=== PATIENT | female | born 1995 | race Caucasian/White ===

== ENCOUNTER 2018-03-25 20:20 | Emergency (ER) | payer OTHER ==
[~2018-03-25] VITALS: Ht 167.6 cm; Wt 59.2 kg
[2018-03-25 20:47] LABS: BASOPHILS # (AUTO) 0.02 x10^3/uL (0-0.1); BASOPHILS % (AUTO) 0 % (0-1); EOSINOPHILS % (AUTO) 0 % (1-7); LYMPHOCYTES # (AUTO) 1.14 x10^3/uL (1-3.4); LYMPHOCYTES % (AUTO) 8 % (22-44); MD NO; MEAN CORPUSCULAR HEMOGLOBIN 34.9 pg (27.0-34.8); MEAN CORPUSCULAR VOLUME 102.6 fL (80-100); MEAN PLATELET VOLUME 10.3 fL (7.4-10.4); MONOCYTES # (AUTO) 0.87 x10^3/uL (0.2-0.8); MONOCYTES % (AUTO) 6 % (2-9); NEUTROPHILS # (AUTO) 13.16 x10^3/uL (1.8-6.8); NEUTROPHILS % (AUTO) 87 % (42-75); PLATELET COUNT 230 x10^3/uL (130-400); RED BLOOD COUNT 4.96 x10^6/uL (3.82-5.3); RED CELL DISTRIBUTION WIDTH 15.1 % (9.6-15.2)
[2018-03-25 20:58] LABS: MICROSCOPIC INDICATED
[2018-03-25 20:59] LABS: ALBUMIN 3.9 g/dL (3.4-5.0); ANION GAP 12 mmol/L (5-15); CALCIUM 9.3 mg/dL (8.5-10.1); CHLORIDE 103 mmol/L (98-107)
[2018-03-25] MEDS ORDERED: ONDANSETRON ODT 4 MG ONE (21:00)
[2018-03-25 21:05] LABS: ALANINE AMINOTRANSFERASE 31 U/L (12-78); ALKALINE PHOSPHATASE 110 U/L (45-117); BILIRUBIN,TOTAL 0.8 mg/dL (0.2-1.0); CREATININE 1.25 mg/dL (0.55-1.02); TOTAL PROTEIN 8.4 g/dL (6.4-8.2)
[2018-03-25 21:06] LABS: CULTURE INDICATED? NO
[2018-03-25] MEDS ORDERED: ZIPRASIDONE 20 MG INJ IM ONE ×2 (21:08→21:30)
[2018-03-25 23:17] VITALS: BP 111/70
== END 2018-03-25 23:24 | disposition home or self-care (01) ==
LOC: ED 20:57
DX: F41.9 Anxiety disorder, unspecified (principal); F17.200 Nicotine dependence, unspecified, uncomplicated; Z87.39 Personal history of other diseases of the musculoskeletal system and connective tissue
CPT/HCPCS: 36415; 71045; 80053; 81001; 83690; 84703; 85025; 93005; 96372; 99285; J3486

== ENCOUNTER 2019-03-12 13:16 | Observation (INO) | payer OTHER ==
[~2019-03-12] VITALS: Ht 167.6 cm; Wt 67.3 kg
--- NOTE | 2019-03-12 13:41 | NUR ---
THIS IS A 23 YO FEMALE COMING IN FOR SOB AND TACHYPNEA. PT HAS HX OF ANXIETY BUT STATES PREVIOUS ANXIETY ATTACKS HAVE NOT BEEN THIS SEVERE. PT STATES THAT SHE REGUARLY SMOKES MARIJUANA, BUT HAS NOT SMOKED IN 3-4 DAYS AND FEELS NAUSEOUS AND THROWS UP IF SHE DOES NOT SMOKE MARIJANA, PATIENT SAYS SHE VOMITED ALL DAY YESTERDAY, CURRENTLY DOES NOT FEEL NAUSEOUS. PATIENT PLACED ON CONTINUOUS SPO2 AT 97%, CYCLE BP Q1HR. PROVIDED WITH WARM BLANKET, AND CALL LIGHT, DENIES FURTHER NEEDS AT THIS TIME.
[2019-03-12] MEDS ORDERED: LORazepam 2 MG/ML, 1ML IM ONE (14:00)
[2019-03-12 14:01] LABS: ALANINE AMINOTRANSFERASE 36 U/L (12-78); ALBUMIN 3.8 g/dL (3.4-5.0); ANION GAP 10 mmol/L (5-15); CALCIUM 9.2 mg/dL (8.5-10.1); CHLORIDE 104 mmol/L (98-107); CREATININE 1.25 mg/dL (0.55-1.02)
[2019-03-12 14:06] LABS: ALKALINE PHOSPHATASE 95 U/L (45-117); BILIRUBIN,TOTAL 1.3 mg/dL (0.2-1.0); TOTAL PROTEIN 7.9 g/dL (6.4-8.2)
[2019-03-12] MEDS ORDERED: LORazepam 2 MG/ML, 1ML ONE (14:07)
[2019-03-12] MEDS ORDERED: D5%-0.45NACL+KCL 40MEQ 1,000 ML IV SCH (14:30)
--- NOTE | 2019-03-12 14:31 | NUR ---
REPORT GIVEN TO TEMO MARTINI. US IN ROOM, PATIENT RESTING.
[2019-03-12] MEDS ORDERED: GUAIFENESIN/DM 200-20MG, 10ML UDC PO PRN (15:00)
[2019-03-12] MEDS ORDERED: DOCUSATE 100 MG CAPSULE PO PRN (15:00)
[2019-03-12] MEDS ORDERED: hydrALAzine 20 MG/ML, 1ML IVPush PRN (15:00)
[2019-03-12] MEDS ORDERED: ACETAMINOPHEN 325 MG TABLET PO PRN (15:00)
[2019-03-12] MEDS ORDERED: ONDANSETRON ODT 4 MG PO PRN (15:00)
[2019-03-12 15:29] LABS: TROPONIN I < 0.015 ng/mL (0.000-0.045)
--- NOTE | 2019-03-12 15:29 | NUR ---
PATIENT MEDICATED PER EMAR, RESTING COMFORTABLY IN [place], NAD, VSS, ON CONTINUOUS SPO2 AT 92%, CYCLE BP Q1HR. PATIENT DENIES FURTHER NEEDS AT THIS TIME. WAITING FOR ROOM ASSIGNMENT.
--- NOTE | 2019-03-12 16:30 | NUR ---
REPORT GIVEN TO TEMO SHETTY. PLAN OF CARE DISCUSSED.
[2019-03-12] MEDS ORDERED: ALPR0.5T7 PO (16:32)
[2019-03-12] MEDS ORDERED: ONDA4TAB7 PO (16:33)
--- NOTE | 2019-03-12 16:55 | NUR ---
PATIENT TRANSPORTED WITH MEDICATIONS RUNNING. UNABLE TO DOCUMENT IN [facility].
[2019-03-12] MEDS ORDERED: SINCALIDE (KINEVAC) 5 MCG ONE (18:33)
[2019-03-12 19:07] VITALS: BP 142/92
[2019-03-12] MEDS: SODIUM CHLORIDE 0.9% 1,000 ML IV SCH ×2 (19:30→23:31)
[2019-03-12] MEDS: FAMOTIDINE 20 MG TABLET PO SCH (20:14)
[2019-03-12 21:24] LABS: TROPONIN I < 0.015 ng/mL (0.000-0.045)
[2019-03-13 00:15] LABS: ANION GAP 7 mmol/L (5-15); CALCIUM 8.2 mg/dL (8.5-10.1); CHLORIDE 109 mmol/L (98-107); CREATININE 0.79 mg/dL (0.55-1.02)
[2019-03-13 01:54] VITALS: BP 122/81
[2019-03-13 03:26] LABS: CULTURE INDICATED? YES; MICROSCOPIC INDICATED
[2019-03-13 03:36] LABS: AMPHETAMINE SCREEN, URINE Negative (Negative); BARBITURATE SCREEN, URINE Negative (Negative); BENZODIAZEPINE SCREEN, URINE Positive (Negative); CANNABINOID SCREEN, URINE Positive (Negative); COCAINE SCREEN, URINE Negative (Negative); METHADONE SCREEN, URINE Negative (Negative); OPIATE SCREEN, URINE Negative (Negative)
[2019-03-13 05:30] LABS: BASOPHILS # (AUTO) 0.02 x10^3/uL (0-0.1); BASOPHILS % (AUTO) 0 % (0-1); EOSINOPHILS # (AUTO) 0.16 x10^3/uL (0-0.4); EOSINOPHILS % (AUTO) 1 % (1-7); LYMPHOCYTES % (AUTO) 12 % (22-44); MD NO; MEAN CORPUSCULAR HEMOGLOBIN 35.2 pg (27.0-34.8); MEAN CORPUSCULAR HGB CONC 33.4 g/dL (32.4-35.8); MEAN CORPUSCULAR VOLUME 105.5 fL (80-100); MEAN PLATELET VOLUME 11.3 fL (7.4-10.4); MONOCYTES # (AUTO) 1.13 x10^3/uL (0.2-0.8); MONOCYTES % (AUTO) 10 % (2-9); NEUTROPHILS # (AUTO) 8.63 x10^3/uL (1.8-6.8); NEUTROPHILS % (AUTO) 76 % (42-75); PLATELET COUNT 155 x10^3/uL (130-400); RED BLOOD COUNT 4.29 x10^6/uL (3.82-5.3); RED CELL DISTRIBUTION WIDTH 15.1 % (9.6-15.2)
[2019-03-13 05:38] LABS: ANION GAP 8 mmol/L (5-15); CHLORIDE 109 mmol/L (98-107); CREATININE 0.69 mg/dL (0.55-1.02)
[2019-03-13] MEDS ORDERED: CEFTRIAXONE PMX 1GM/50ML 50 ML IV SCH (08:30)
[2019-03-13 08:47] VITALS: BP 130/86
[2019-03-13 08:52] LABS: BILIRUBIN, DIRECT 0.3 mg/dL (0.1-0.2)
[2019-03-13 08:54] LABS: BILIRUBIN,INDIRECT 0.6 mg/dL (0.0-2.0); BILIRUBIN,TOTAL 0.9 mg/dL (0.2-1.0)
[2019-03-13] MEDS: FAMOTIDINE 20 MG TABLET PO SCH (09:00)
[2019-03-13] MEDS ORDERED: EPINEPHRINE 1 MG/ML, 1ML ONE (13:28)
[2019-03-13] MEDS ORDERED: BUPIVACAINE/PF 0.25% ONE (13:28)
[2019-03-13] MEDS ORDERED: MIDAZOLAM 1 MG/ML, 2ML ONE (13:52)
[2019-03-13] MEDS ORDERED: FENTANYL PF 250 MCG/5ML ONE (13:52)
[2019-03-13] MEDS ORDERED: PROPOFOL 10 MG/ML, 20ML ONE (13:55)
[2019-03-13] MEDS ORDERED: CEFAZOLIN 1,000 MG ONE (13:55)
[2019-03-13] MEDS ORDERED: DEXAMETHASONE 4 MG/ML, 1ML ONE (14:03)
[2019-03-13] MEDS ORDERED: SUGAMMADEX 200 MG/2 ML IVPush ONE (14:15)
[2019-03-13] MEDS ORDERED: ROCURONIUM 10MG/ML,5ML ONE (14:18)
[2019-03-13] MEDS ORDERED: SUCCINYLCHOLINE 20 MG/ML, 10ML ONE (14:18)
[2019-03-13] MEDS ORDERED: FENTANYL PF 100 MCG/2ML ONE (14:40)
[2019-03-13] MEDS ORDERED: DIAZEPAM 5 MG/ML, 2ML ONE (14:40)
[2019-03-13] MEDS: FENTANYL PF 100 MCG/2ML IV PRN ×2 (14:40→14:54)
[2019-03-13] MEDS ORDERED: EPHEDRINE 50 MG/ML, 1ML IVPush PRN (15:00)
[2019-03-13] MEDS ORDERED: PROMETHAZINE 25 MG/ML, 1ML IV PRN (15:00)
[2019-03-13] MEDS ORDERED: ACETAMINOPHEN 325 MG TABLET PO PRN (15:00)
[2019-03-13] MEDS ORDERED: MIDAZOLAM 1 MG/ML, 2ML IV PRN (15:00)
[2019-03-13] MEDS ORDERED: HALOPERIDOL 5 MG/ML IV PRN (15:00)
[2019-03-13] MEDS ORDERED: OXYcodone 5 MG/5 ML ORAL.SOL UDC PO PRN (15:00)
[2019-03-13] MEDS ORDERED: HYDROmorphone 2 MG/ML, 1ML IVPush PRN (15:00)
[2019-03-13] MEDS ORDERED: PROMETHAZINE 12.5 MG SUPP PR PRN (15:00)
[2019-03-13] MEDS ORDERED: MEPERIDINE/PF 25MG/ML,1ML IVPush PRN (15:00)
[2019-03-13] MEDS ORDERED: ALBUTEROL SULFATE 2.5 MG/3 ML NPPB PRN (15:00)
[2019-03-13] MEDS ORDERED: ONDANSETRON ODT 8 MG PO PRN (15:00)
[2019-03-13] MEDS ORDERED: ONDANSETRON 2MG/ML, 2ML IV PRN (15:00)
[2019-03-13] MEDS ORDERED: LABETALOL 5MG/ML, 20ML IV PRN (15:00)
[2019-03-13] MEDS ORDERED: DIAZEPAM 5 MG/ML, 2ML IVPush PRN (15:00)
[2019-03-13] MEDS ORDERED: hydrALAzine 20 MG/ML, 1ML IV PRN (15:00)
[2019-03-13] MEDS ORDERED: OXYcodone 5 MG/5 ML ORAL.SOL UDC ONE (15:13)
[2019-03-13 15:53] VITALS: BP 132/85
[2019-03-13] MEDS ORDERED: HYDROcodone/APAP 5/325 TABLET PO PRN (16:00)
[2019-03-13 19:10] VITALS: BP 139/88
== END 2019-03-13 20:30 | disposition left against medical advice (07) ==
LOC: ED 13:59 → EDIP 15:06 → INTOOBSV 15:06 → 4WST 16:43
PROVIDERS: ADMIT Hospitalist; ATTEND Hospitalist
DX: K82.8 Other specified diseases of gallbladder (principal); R11.2 Nausea with vomiting, unspecified; K21.9 Gastro-esophageal reflux disease without esophagitis; F41.0 Panic disorder [episodic paroxysmal anxiety]; F41.9 Anxiety disorder, unspecified; E87.6 Hypokalemia; F31.9 Bipolar disorder, unspecified; N17.9 Acute kidney failure, unspecified; M41.9 Scoliosis, unspecified; F12.90 Cannabis use, unspecified, uncomplicated; E86.0 Dehydration
CPT/HCPCS: 36415; 47562; 71046; 76700; 78227; 80048; 80053; 80074; 80076; 80307; 81001; 83690; 83735; 84100; 84443; 84484; 84703; 85025; 87086; 88304; 93005; 96361; 96365; 96366; 96372; 99284; A9537; C9898; G0378; J0171; J0330; J0690; J1100; J2060; J2250; J2704; J2805; J3010; J3360; J3480; J3490; J7030; Q0162

== ENCOUNTER 2019-05-19 20:49 | Emergency (ER) | payer SELFPAY ==
[~2019-05-19] VITALS: Ht 170.2 cm; Wt 59.8 kg
[~2019-05-19 20:49] MED LIST: ALPR0.5T7 PO; ONDA4TAB7 PO
--- NOTE | 2019-05-19 21:14 | NUR ---
PT TO ROOM FROM LOBBY
--- NOTE | 2019-05-19 21:17 | NUR ---
PT REPORTS N/V X 4DAYS, DENIES DIARRHEA, HAS ABDOMINAL PAIN IN ALL QUADRANTS. REPORTS HX OF SAME. HAS ZOFRAN, XANAX AND PHENERGAN AT HOME HAS BEEN TAKING THEM FOR 1 WEEK, REPORTS THEY ARENT WORKING. MOTHER REPORTSPT HAS BEEN IN ER OVER 20 TIMES IN LAST COUPLE MONTHS. PT RESTING WITH EYES CLOSED REPORTS 10/10 PAIN.
[2019-05-19] MEDS ORDERED: CAPSAICIN CRM 0.075%, 60GM TP STA (21:39)
[2019-05-19] MEDS ORDERED: PROMETHAZINE 25 MG/ML, 1ML IM ONE (22:00)
[2019-05-19] MEDS ORDERED: HALOPERIDOL 5 MG/ML IM PRN (22:00)
[2019-05-19] MEDS ORDERED: SODIUM CHLORIDE 0.9% 1,000ML IVBOLUS ONE (22:00)
[2019-05-19] MEDS ORDERED: HALOPERIDOL 5 MG/ML ONE (22:05)
[2019-05-19] MEDS ORDERED: PROMETHAZINE 25 MG/ML, 1ML ONE (22:05)
[2019-05-19 22:10] LABS: BASOPHILS # (AUTO) 0.03 x10^3/uL (0-0.1); BASOPHILS % (AUTO) 0 % (0-1); EOSINOPHILS # (AUTO) 0.03 x10^3/uL (0-0.4); EOSINOPHILS % (AUTO) 0 % (1-7); LYMPHOCYTES # (AUTO) 1.21 x10^3/uL (1-3.4); LYMPHOCYTES % (AUTO) 9 % (22-44); MD NO; MEAN CORPUSCULAR HEMOGLOBIN 34.9 pg (27.0-34.8); MEAN CORPUSCULAR HGB CONC 33.7 g/dL (32.4-35.8); MEAN CORPUSCULAR VOLUME 103.6 fL (80-100); MEAN PLATELET VOLUME 11.1 fL (7.4-10.4); MONOCYTES # (AUTO) 1.39 x10^3/uL (0.2-0.8); MONOCYTES % (AUTO) 10 % (2-9); NEUTROPHILS # (AUTO) 10.84 x10^3/uL (1.8-6.8); NEUTROPHILS % (AUTO) 80 % (42-75); PLATELET COUNT 193 x10^3/uL (130-400); RED BLOOD COUNT 4.64 x10^6/uL (3.82-5.3); RED CELL DISTRIBUTION WIDTH 15.4 % (9.6-15.2)
[2019-05-19 22:23] LABS: ALBUMIN 3.6 g/dL (3.4-5.0); ANION GAP 6 mmol/L (5-15); CALCIUM 8.6 mg/dL (8.5-10.1); CHLORIDE 103 mmol/L (98-107)
[2019-05-19 22:27] LABS: ALANINE AMINOTRANSFERASE 66 U/L (12-78); ALKALINE PHOSPHATASE 96 U/L (45-117); BILIRUBIN,TOTAL 1.4 mg/dL (0.2-1.0); CREATININE 0.99 mg/dL (0.55-1.02); TOTAL PROTEIN 7.3 g/dL (6.4-8.2)
[2019-05-19] MEDS ORDERED: SODIUM CHLORIDE FLUSH 10ML SYR IVF ONE (22:30)
--- NOTE | 2019-05-19 22:37 | NUR ---
ZOSTRIX ORDERED FROM PHARMACY
[2019-05-19 22:54] LABS: MICROSCOPIC NOT IND
[2019-05-19 23:02] LABS: CULTURE INDICATED? NO; HCG UR SG > 1.045 (1.003-1.030)
[2019-05-19 23:18] VITALS: BP 123/82
[2019-05-19] MEDS ORDERED: POTASSIUM CHLORIDE 20 MEQ TAB.ER.PRT PO ONE ×2 (23:30)
--- NOTE | 2019-05-19 23:30 | NUR ---
PT RESTING ON GURNEY WITH EYES CLOSED, CALL LIGHT WITHIN REACH, MONITORING IN PLACE. ALL SAFETY MEASURES IN PLACE.
[2019-05-19] MEDS ORDERED: POTASSIUM CHLORIDE 20 MEQ TAB.ER.PRT ONE ×2 (23:34→23:38)
== END 2019-05-20 00:01 | disposition home or self-care (01) ==
LOC: ED 21:13
DX: F12.188 Cannabis abuse with other cannabis-induced disorder (principal); R11.2 Nausea with vomiting, unspecified; E87.6 Hypokalemia; F17.210 Nicotine dependence, cigarettes, uncomplicated; K21.9 Gastro-esophageal reflux disease without esophagitis; Z72.9 Problem related to lifestyle, unspecified; Z90.49 Acquired absence of other specified parts of digestive tract
CPT/HCPCS: 36415; 80053; 80307; 81003; 81025; 83690; 85025; 96360; 96372; 99284; J1630; J2550; J7030

== ENCOUNTER 2019-05-22 08:53 | Inpatient (IN) | payer OTHER ==
[~2019-05-22] VITALS: Ht 167.6 cm; Wt 59.2 kg
--- NOTE | 2019-05-22 09:08 | NUR ---
PT MOVED TO ROOM
[2019-05-22] MEDS ORDERED: SODIUM CHLORIDE 0.9% 1,000 ML IV ONE (09:13)
[2019-05-22] MEDS ORDERED: PROMETHAZINE 25 MG/ML, 1ML IM ONE (09:30)
[2019-05-22] MEDS ORDERED: SODIUM CHLORIDE FLUSH 10ML SYR IVF ONE (09:30)
[2019-05-22] MEDS ORDERED: ONDANSETRON 2MG/ML, 2ML IVPush ONE (09:30)
[2019-05-22] MEDS ORDERED: FAMOTIDINE 20 MG/2 ML IV ONE (09:30)
[2019-05-22 09:33] LABS: BASOPHILS # (AUTO) 0.01 x10^3/uL (0-0.1); BASOPHILS % (AUTO) 0 % (0-1); EOSINOPHILS # (AUTO) 0.05 x10^3/uL (0-0.4); EOSINOPHILS % (AUTO) 0 % (1-7); LYMPHOCYTES # (AUTO) 1.35 x10^3/uL (1-3.4); LYMPHOCYTES % (AUTO) 11 % (22-44); MD NO; MEAN CORPUSCULAR HEMOGLOBIN 35.2 pg (27.0-34.8); MEAN CORPUSCULAR HGB CONC 33.8 g/dL (32.4-35.8); MEAN CORPUSCULAR VOLUME 103.9 fL (80-100); MEAN PLATELET VOLUME 10.3 fL (7.4-10.4); MONOCYTES # (AUTO) 1.14 x10^3/uL (0.2-0.8); MONOCYTES % (AUTO) 9 % (2-9); NEUTROPHILS # (AUTO) 9.84 x10^3/uL (1.8-6.8); NEUTROPHILS % (AUTO) 79 % (42-75); PLATELET COUNT 187 x10^3/uL (130-400); RED BLOOD COUNT 5.13 x10^6/uL (3.82-5.3); RED CELL DISTRIBUTION WIDTH 14.7 % (9.6-15.2)
[2019-05-22 09:59] LABS: ALANINE AMINOTRANSFERASE 48 U/L (12-78); ALBUMIN 4.1 g/dL (3.4-5.0); CALCIUM 9.4 mg/dL (8.5-10.1); CREATININE 0.99 mg/dL (0.55-1.02)
[2019-05-22] MEDS ORDERED: FAMOTIDINE 20 MG/2 ML ONE (10:04)
[2019-05-22] MEDS ORDERED: ONDANSETRON 2MG/ML, 2ML ONE ×2 (10:04→13:00)
[2019-05-22] MEDS ORDERED: PROMETHAZINE 25 MG/ML, 1ML ONE (10:04)
--- NOTE | 2019-05-22 10:09 | NUR ---
Report from TEMO Vasquez. Patient back from X-ray. IV started. IVF started per mar. Patient medicated per mar. 5 rights verified prior. 3p's addressed.
[2019-05-22 10:13] LABS: ALKALINE PHOSPHATASE 92 U/L (45-117); ANION GAP 11 mmol/L (5-15); BILIRUBIN,TOTAL 1.1 mg/dL (0.2-1.0); CHLORIDE 102 mmol/L (98-107); TOTAL PROTEIN 7.8 g/dL (6.4-8.2)
--- NOTE | 2019-05-22 10:53 | NUR ---
PATIENT UP TO RESTROOM. URINE SAMPLE OBTAINED AND SENT TO LAB. HOSPITALIST AT BEDSIDE TO ADMIT.
[2019-05-22] MEDS ORDERED: ONDANSETRON 2MG/ML, 2ML IVPush PRN (11:00)
[2019-05-22] MEDS ORDERED: POTASSIUM CHLORIDE 40 MEQ in SODIUM CHLORIDE 0.9% 500 ML IV ONE (11:00)
[2019-05-22] MEDS ORDERED: ACETAMINOPHEN 325 MG TABLET PO PRN (11:00)
[2019-05-22] MEDS ORDERED: NICOTINE 14MG/24 HR PATCH.TD24 TD SCH (11:00)
[2019-05-22] MEDS ORDERED: ONDANSETRON ODT 4 MG PO PRN (11:00)
[2019-05-22 11:03] LABS: HCG UR SG 1.026 (1.003-1.030)
[2019-05-22 11:04] LABS: CULTURE INDICATED? YES; MICROSCOPIC INDICATED
--- NOTE | 2019-05-22 13:16 | NUR ---
Patient with increased Nausea. Pt medicated per jul. 5 rights verified prior. 3 p's addressed.
--- NOTE | 2019-05-22 14:26 | NUR ---
Report to TEMO Crowell.
[2019-05-22] MEDS ORDERED: NICOTINE 14MG/24 HR PATCH.TD24 ONE (14:56)
[2019-05-22 15:14] VITALS: BP 113/71
[2019-05-22] MEDS: NS + 40MEQ KCL 1,000 ML IV SCH (17:25)
[2019-05-22 21:05] VITALS: BP 119/76
[2019-05-23 01:12] VITALS: BP 118/75
[2019-05-23] MEDS: NS + 40MEQ KCL 1,000 ML IV SCH (05:29)
[2019-05-23 05:38] LABS: BASOPHILS # (AUTO) 0.09 x10^3/uL (0-0.1); BASOPHILS % (AUTO) 1 % (0-1); EOSINOPHILS # (AUTO) 0.26 x10^3/uL (0-0.4); EOSINOPHILS % (AUTO) 3 % (1-7); LYMPHOCYTES # (AUTO) 3.36 x10^3/uL (1-3.4); LYMPHOCYTES % (AUTO) 35 % (22-44); MD NO; MEAN CORPUSCULAR HEMOGLOBIN 35.3 pg (27.0-34.8); MEAN CORPUSCULAR HGB CONC 33.6 g/dL (32.4-35.8); MEAN CORPUSCULAR VOLUME 105.1 fL (80-100); MEAN PLATELET VOLUME 11.1 fL (7.4-10.4); MONOCYTES # (AUTO) 1.11 x10^3/uL (0.2-0.8); MONOCYTES % (AUTO) 12 % (2-9); NEUTROPHILS # (AUTO) 4.72 x10^3/uL (1.8-6.8); NEUTROPHILS % (AUTO) 50 % (42-75); PLATELET COUNT 146 x10^3/uL (130-400); RED BLOOD COUNT 4.23 x10^6/uL (3.82-5.3); RED CELL DISTRIBUTION WIDTH 14.9 % (9.6-15.2)
[2019-05-23 05:42] LABS: ANION GAP 6 mmol/L (5-15); CALCIUM 8.2 mg/dL (8.5-10.1); CHLORIDE 112 mmol/L (98-107); CREATININE 0.71 mg/dL (0.55-1.02)
[2019-05-23 08:15] VITALS: BP 129/83
[2019-05-23] MEDS ORDERED: CALCIUM GLUCONATE 4.6 MEQ in SODIUM CHLORIDE 0.9% 50 ML IV ONE (09:00)
[2019-05-23] MEDS ORDERED: NICO-486 TD (10:26)
== END 2019-05-23 11:00 | disposition home or self-care (01) | DRG 392 ==
LOC: ED 10:24 → EDIP 10:34 → 4WST 14:58
PROVIDERS: ADMIT Emergency Medicine; ATTEND Family Medicine
DX: R11.2 Nausea with vomiting, unspecified (principal); D75.1 Secondary polycythemia; E83.51 Hypocalcemia; E87.6 Hypokalemia; F10.10 Alcohol abuse, uncomplicated; F12.10 Cannabis abuse, uncomplicated; K21.9 Gastro-esophageal reflux disease without esophagitis; F41.1 Generalized anxiety disorder; Z72.0 Tobacco use; Z90.49 Acquired absence of other specified parts of digestive tract
CPT/HCPCS: 36415; 74022; J3490; 80048; 80053; 81001; 81025; 83605; 83690; 83735; 84702; 85025; 87086; 93005; G0378; J0610; J2405; J2550; J3480; J7030; J7040

== ENCOUNTER 2019-07-08 10:46 | Emergency (ER) | payer OTHER ==
[~2019-07-08] VITALS: Ht 167.6 cm; Wt 60.0 kg
[~2019-07-08 10:46] MED LIST changes: +NICO-486 TD
--- NOTE | 2019-07-08 11:03 | NUR ---
TO ROOM FROM LOBBY.
--- NOTE | 2019-07-08 11:11 | NUR ---
PT. TO ED 24 WITH FAMILY. UPON ENTERING ROOM PT. DRY-HEAVING AND MOANING. STATES THIS HAS BEEN GOING ON FOR 36 HOURS WITH A HX OF SAME IN THE PAST. REPORTS GENERALIZED ABD CAMPING WITH VOMITING. HX OF HOLLIE. LAB AT COMPLETED BLOOD DRAW. PT. PROVIDED [facility] CLE[facility] CATCH UA INSTRUCIONS AND IS AWARE OF NEED FOR SAMPLE. AWAITING PROVIDER EVAL AND FURTHER ORDERS.
[2019-07-08 11:19] LABS: BASOPHILS # (AUTO) 0.02 x10^3/uL (0-0.1); BASOPHILS % (AUTO) 0 % (0-1); EOSINOPHILS # (AUTO) 0.01 x10^3/uL (0-0.4); EOSINOPHILS % (AUTO) 0 % (1-7); LYMPHOCYTES # (AUTO) 1.41 x10^3/uL (1-3.4); LYMPHOCYTES % (AUTO) 8 % (22-44); MD NO; MEAN CORPUSCULAR HEMOGLOBIN 34.8 pg (27.0-34.8); MEAN CORPUSCULAR HGB CONC 33.6 g/dL (32.4-35.8); MEAN CORPUSCULAR VOLUME 103.4 fL (80-100); MEAN PLATELET VOLUME 10.9 fL (7.4-10.4); MONOCYTES % (AUTO) 8 % (2-9); NEUTROPHILS # (AUTO) 14.05 x10^3/uL (1.8-6.8); NEUTROPHILS % (AUTO) 83 % (42-75); PLATELET COUNT 200 x10^3/uL (130-400); RED BLOOD COUNT 4.96 x10^6/uL (3.82-5.3); RED CELL DISTRIBUTION WIDTH 14.1 % (9.6-15.2)
[2019-07-08 11:31] LABS: ALANINE AMINOTRANSFERASE 135 U/L (12-78); ALBUMIN 3.9 g/dL (3.4-5.0); ANION GAP 12 mmol/L (5-15); CALCIUM 9.5 mg/dL (8.5-10.1); CHLORIDE 108 mmol/L (98-107); CREATININE 1.25 mg/dL (0.55-1.02)
[2019-07-08 11:36] LABS: ALKALINE PHOSPHATASE 127 U/L (45-117); BILIRUBIN,TOTAL 1.4 mg/dL (0.2-1.0); TOTAL PROTEIN 8.2 g/dL (6.4-8.2)
--- NOTE | 2019-07-08 11:49 | NUR ---
PT. CONTINUES DRY-HEAVING; X-RAY TECH REPORTS THEY ARE UNABLE TO GET IMAGE PT. UNABLE TO STAND/HOLD STILL FOR IMAGING.
[2019-07-08] MEDS ORDERED: ONDANSETRON 2MG/ML, 2ML IVPush ONE (12:00)
[2019-07-08] MEDS ORDERED: HALOPERIDOL 5 MG/ML IM ONE (12:00)
[2019-07-08] MEDS ORDERED: FAMOTIDINE 20 MG/2 ML IVPush ONE (12:00)
[2019-07-08] MEDS ORDERED: SODIUM CHLORIDE 0.9% 1,000ML IVBOLUS ONE (12:00)
[2019-07-08] MEDS ORDERED: SODIUM CHLORIDE FLUSH 10ML SYR IVF ONE (12:00)
[2019-07-08] MEDS ORDERED: ONDANSETRON 2MG/ML, 2ML ONE (12:10)
[2019-07-08] MEDS ORDERED: FAMOTIDINE 20 MG/2 ML ONE (12:10)
[2019-07-08] MEDS ORDERED: HALOPERIDOL 5 MG/ML ONE (12:10)
--- NOTE | 2019-07-08 12:24 | NUR ---
IV ESTABLISHED, MEDS GIVEN PER JUL. URINE SAMPLE SENT TO LAB. EXTRA BLANKET GIVEN.
[2019-07-08 12:44] LABS: MICROSCOPIC INDICATED
--- NOTE | 2019-07-08 12:44 | NUR ---
PT. RESTING ON GURNEY MOSTLY SLEEPING. PLACED ON 2L O2 FOR DESAT TO 86% WITH IMMEDIATE INCREASE TO >94%. PT. REPORTS SHE WILL BE ABLE TO TOLERATE X-RAY NOW; X-RAY CONTACTED TO COMPLETE IMAGING. IVF INFUSING WELL PER ORDER. ALL SAFETY MEASURES OBSERVED. FAMILY REMAIN AT BS FOR SUPPORT.
[2019-07-08 12:46] LABS: CULTURE INDICATED? YES
--- NOTE | 2019-07-08 14:15 | NUR ---
PT. RESTING ON GURNEY WITH EYES CLOSED. NO DISTRESS NOTED, EVEN, NON-LABORED RESPIRATIONS VISIBLE. CALL LIGHT IN REACH. VSS. CHART UP FOR REHCECK BY MARCELA.
--- NOTE | 2019-07-08 15:04 | NUR ---
DR. RAHMAN GAVE PT. WATER FOR PO CHALLENGE; PT. HAS NOT BEEN VOMITING THUS FAR. BS REPORT TO TEMO SAN TO ASSUME CARE OF PT.
[2019-07-08 17:06] VITALS: BP 104/59
== END 2019-07-08 17:08 | disposition home or self-care (01) ==
LOC: ED 13:17
DX: R11.2 Nausea with vomiting, unspecified (principal); E86.0 Dehydration; K21.9 Gastro-esophageal reflux disease without esophagitis; Z90.49 Acquired absence of other specified parts of digestive tract
CPT/HCPCS: 36415; 74021; 80053; 80307; 81001; 83690; 84703; 85025; 87086; 96361; 96372; 96374; 96375; 99285; J1630; J2405; J3490; J7030

== ENCOUNTER 2019-11-17 09:00 | Emergency (ER) | payer SELFPAY ==
[~2019-11-17] VITALS: Ht 167.6 cm; Wt 61.0 kg
--- NOTE | 2019-11-17 09:20 | NUR ---
FIRST CONTACT WITH PT. PT C/O "REALLY BAD HEARTBURN AND IT HURTS TO BREATHE" SINCE 429. HX OF HOLLIE IN FEBRUARY. PT'S AOX4. RESPS EVEN AND UNLABORED. ALL MONITORS IN PLACE. CALL LIGHT WITHIN REACH. EKG DONE AT BEDSIDE BY EMT. PT IS CRYING WHILE ASSESSMENT AT THIS TIME. PT DENIES ANY OTHER SX.
[2019-11-17] MEDS ORDERED: MAALOX/HYOSCYAMINE/LIDOCAINE 45 ML BTL PO ONE (09:30)
[2019-11-17] MEDS ORDERED: LORazepam 2 MG/ML, 1ML IVPush ONE (09:30)
[2019-11-17] MEDS ORDERED: SODIUM CHLORIDE FLUSH 10ML SYR IVF ONE (09:30)
[2019-11-17] MEDS ORDERED: FAMOTIDINE 20 MG/2 ML IVPush ONE (09:30)
--- NOTE | 2019-11-17 09:33 | NUR ---
PT TO XRAY AT THIS TIME.
[2019-11-17] MEDS ORDERED: MAALOX/HYOSCYAMINE/LIDOCAINE 45 ML BTL ONE (09:36)
[2019-11-17] MEDS ORDERED: FAMOTIDINE 20 MG/2 ML ONE (09:36)
[2019-11-17] MEDS ORDERED: LORazepam 2 MG/ML, 1ML ONE (09:36)
--- NOTE | 2019-11-17 09:48 | NUR ---
PT BACK TO ROOM FROM XRAY AT THIS TIME.
--- NOTE | 2019-11-17 10:06 | NUR ---
URINE COLLECTED AND UA SENT.
--- NOTE | 2019-11-17 10:06 | NUR ---
PT MEDICATED PER EMAR. PT TOLERATED WELL. PT'S AOX4. RESPS EVEN AND UNLABORED.
[2019-11-17 10:12] LABS: BASOPHILS % (AUTO) 0 % (0-1); EOSINOPHILS # (AUTO) 0.04 x10^3/uL (0-0.4); EOSINOPHILS % (AUTO) 0 % (1-7); LYMPHOCYTES # (AUTO) 1.13 x10^3/uL (1-3.4); LYMPHOCYTES % (AUTO) 10 % (22-44); MD NO; MEAN CORPUSCULAR HGB CONC 34.3 g/dL (32.4-35.8); MEAN PLATELET VOLUME 10.4 fL (7.4-10.4); MONOCYTES # (AUTO) 0.59 x10^3/uL (0.2-0.8); MONOCYTES % (AUTO) 5 % (2-9); NEUTROPHILS # (AUTO) 10.18 x10^3/uL (1.8-6.8); NEUTROPHILS % (AUTO) 85 % (42-75); PLATELET COUNT 248 x10^3/uL (130-400); RED BLOOD COUNT 4.31 x10^6/uL (3.82-5.3); RED CELL DISTRIBUTION WIDTH 14.7 % (9.6-15.2)
[2019-11-17 10:24] LABS: ALANINE AMINOTRANSFERASE 21 U/L (12-78); ALBUMIN 3.7 g/dL (3.4-5.0); ANION GAP 9 mmol/L (5-15); CALCIUM 9.4 mg/dL (8.5-10.1); CHLORIDE 109 mmol/L (98-107); CREATININE 0.84 mg/dL (0.55-1.02)
[2019-11-17 10:29] LABS: ALKALINE PHOSPHATASE 100 U/L (45-117); TOTAL PROTEIN 7.4 g/dL (6.4-8.2)
[2019-11-17 10:56] LABS: MICROSCOPIC INDICATED
--- NOTE | 2019-11-17 11:01 | NUR ---
pt resting in [facility]. pt's aox4. resps even and unlabored. all monitors in place. call light within reach.
[2019-11-17 11:05] VITALS: BP 116/79
--- NOTE | 2019-11-17 11:26 | NUR ---
pt requesting medication for nausea/pain/anxiety at this time. pt crying in [facility]. edmd notified.
[2019-11-17] MEDS ORDERED: ALUMINUM/MAG/SIMETHICONE 30 ML UDC ONE (11:30)
[2019-11-17] MEDS ORDERED: ALUMINUM/MAG/SIMETHICONE 30 ML UDC PO PRN (11:30)
--- NOTE | 2019-11-17 11:32 | NUR ---
PT MEDICATED PER EMAR. PT TOLERATED WELL. PT'S AOX4. RESPS EVEN AND UNLABORED.
--- NOTE | 2019-11-17 11:38 | NUR ---
Patient given discharge instructions and they have confirmed that they understand the instructions. Patient ambulatory with steady gait.
== END 2019-11-17 11:39 | disposition home or self-care (01) ==
LOC: ED 10:36
DX: K29.00 Acute gastritis without bleeding (principal); R11.2 Nausea with vomiting, unspecified; R07.89 Other chest pain; R10.13 Epigastric pain; K21.9 Gastro-esophageal reflux disease without esophagitis; I51.7 Cardiomegaly; Z90.49 Acquired absence of other specified parts of digestive tract
CPT/HCPCS: 36415; 74022; 80053; 81001; 83690; 84703; 85025; 87086; 93005; 96374; 96375; 99285; J2060; J3490

== ENCOUNTER 2020-04-30 07:59 | Emergency (ER) | payer SELFPAY ==
[~2020-04-30] VITALS: Ht 167.6 cm; Wt 62.8 kg
[2020-04-30] MEDS ORDERED: FAMOTIDINE 20 MG/2 ML ONE (08:31)
[2020-04-30] MEDS ORDERED: PROMETHAZINE 25 MG/ML, 1ML ONE (08:31)
[2020-04-30] MEDS ORDERED: ONDANSETRON 2MG/ML, 2ML ONE (08:31)
[2020-04-30 08:44] LABS: BASOPHILS % (AUTO) 1 % (0-1); EOSINOPHILS % (AUTO) 0 % (1-7); LYMPHOCYTES % (AUTO) 10 % (22-44); MEAN CORPUSCULAR HEMOGLOBIN 36.7 pg (27.0-34.8); MEAN CORPUSCULAR HGB CONC 34.9 g/dL (32.4-35.8); MEAN PLATELET VOLUME 9.3 fL (7.4-10.4); MONOCYTES % (AUTO) 4 % (2-9); NEUTROPHILS % (AUTO) 85 % (42-75); PLATELET COUNT 201 x10^3/uL (130-400); RED BLOOD COUNT 3.97 x10^6/uL (3.82-5.3); RED CELL DISTRIBUTION WIDTH 14.5 % (9.6-15.2)
[2020-04-30 08:52] LABS: ALANINE AMINOTRANSFERASE 32 U/L (12-78); ALBUMIN 3.9 g/dL (3.4-5.0); ANION GAP 14 mmol/L (5-15); CALCIUM 8.8 mg/dL (8.5-10.1); CHLORIDE 111 mmol/L (98-107); CREATININE 0.81 mg/dL (0.55-1.02)
--- NOTE | 2020-04-30 08:53 | NUR ---
PT IS A 24F COMPLAINING OF GERD, AND N/V SINCE 2:00AM. SHE IS ACTIVELY VOMITING AND APPEARS EXTREMELY UNCOMFORTABLE. 20G IV STARTED IN LEFT FOREARM. PT MEDICATED PER EMAR. WARM BLANKETS PROVIDED. CYCLING VITALS AND CONTINUOUS SPO2 MONITOR. CALL LIGHT WITHIN REACH.
[2020-04-30 08:57] LABS: ALKALINE PHOSPHATASE 103 U/L (45-117); BILIRUBIN,TOTAL 0.3 mg/dL (0.2-1.0); TOTAL PROTEIN 7.9 g/dL (6.4-8.2)
[2020-04-30 08:58] LABS: MD NO
[2020-04-30] MEDS ORDERED: FAMOTIDINE 20 MG/2 ML IV ONE (09:00)
[2020-04-30] MEDS ORDERED: SODIUM CHLORIDE 0.9% 1,000 ML IV ONE (09:00)
[2020-04-30] MEDS ORDERED: PROMETHAZINE 25 MG/ML, 1ML IM ONE (09:00)
[2020-04-30] MEDS ORDERED: SODIUM CHLORIDE 0.9% 1,000ML IVBOLUS ONE (09:00)
[2020-04-30] MEDS ORDERED: ONDANSETRON 2MG/ML, 2ML IVPush ONE (09:00)
[2020-04-30] MEDS ORDERED: SODIUM CHLORIDE FLUSH 10ML SYR IVF ONE (09:30)
--- NOTE | 2020-04-30 09:37 | NUR ---
PO CHALLENGE - GAVE PATIENT 2 SIPS OF WATER, SHE IMMEDIATELY VOMITED.
[2020-04-30] MEDS ORDERED: HALOPERIDOL 5 MG/ML ONE (09:42)
--- NOTE | 2020-04-30 09:49 | NUR ---
MEDICATED PATIENT PER EMAR. PLACED PT ON PRODUCTION OPERATIONS INSPECTOR. SHE IS RESTING COMFORTABLY. CALL LIGHT WITHIN REACH AND BED RAILS UP ON BED. NO OTHER NEEDS AT THIS TIME.
[2020-04-30] MEDS ORDERED: HALOPERIDOL 5 MG/ML IV ONE (10:00)
--- NOTE | 2020-04-30 10:21 | NUR ---
PATIENT IS SLEEPING AND RESTING COMFORTABLY. STARTED SECOND BAG OF NS. CALL LIGHT WITHIN REACH, NO OTHER NEEDS VERBALIZED AT THIS TIME.
--- NOTE | 2020-04-30 10:40 | NUR ---
GAVE PATIENT SOME ICE CHIPS FOR ANOTHER PO CHALLENGE. PATIENT WAS RESTING COMFORTABLY, NO ADDITIONAL NEEDS AT THIS TIME. CALL LIGHT WITHIN REACH.
--- NOTE | 2020-04-30 11:30 | NUR ---
PATIENT VOMITED 25CC. ABDOMINAL PAIN IS DOWN TO A ZERO BUT THE NAUSEA VOMITING PERSIST.
--- NOTE | 2020-04-30 11:37 | NUR ---
TRIED TO WALK THE PATIENT TO THE BATHROOM BUT SHE GOT DIZZY AND FELT LIGHT HEADED. PROVIDED A BEDSIDE COMMODE.
--- NOTE | 2020-04-30 11:45 | NUR ---
PATIENT HAD A LARGE BM AND VOIDED ABOUT 100CC
--- NOTE | 2020-04-30 12:15 | NUR ---
PATIENT VOMITING SUBSIDED. RESTING COMFORTABLY. CALL LIGHT WITHIN REACH.
[2020-04-30] MEDS ORDERED: ONDANSETRON ODT 8 MG ONE (12:39)
--- NOTE | 2020-04-30 12:41 | NUR ---
WENT TO DC THE PATIENT AND SHE WAS DRESSED SITTING ON THE BED VOMITING. SPOKE WITH DR BROWN, MEDICATED PATIENT. WILL WATCH HER FOR 15 MORE MINUTES AND DC.
[2020-04-30] MEDS ORDERED: ONDANSETRON ODT 8 MG PO ONE (13:00)
--- NOTE | 2020-04-30 13:00 | NUR ---
DR BROWN AT BEDSIDE DISCUSSING PLAN OF CARE. PT WOULD LIKE TO SEE IF SHE CAN MANAGE HER SYMTOMS AT WILL DC Addendum: 04/30/20 at 1305 by ASMITHMelissa SHE WILL MANAGE HER SYMPTOMS AT HOME. ADVISED TO COME BACK IF SYMPTOMS WORSEN.
[2020-04-30 13:03] VITALS: BP 136/81
== END 2020-04-30 13:08 | disposition home or self-care (01) ==
LOC: ED 12:57
DX: K29.00 Acute gastritis without bleeding (principal); R11.2 Nausea with vomiting, unspecified; E86.0 Dehydration; K21.9 Gastro-esophageal reflux disease without esophagitis; F17.200 Nicotine dependence, unspecified, uncomplicated; Z90.49 Acquired absence of other specified parts of digestive tract
CPT/HCPCS: 36415; 80053; 83690; 84703; 85025; 96361; 96372; 96374; 96375; 99285; J1630; J2405; J2550; J7030; Q0162